=== PATIENT | male | born 1990 | race Hispanic/Latino ===

== ENCOUNTER → 2019-05-01 | Outpatient (CLI) | payer BC ==
--- NOTE | 2019-05-01 17:29 | Diagnostic Imaging Report ---
EXAM: SINUSES (PARANASAL)MIN 3VIEWS DATE: 05/01/2019 9:29 AM INDICATION: Headache, hypertension COMPARISON: None FINDINGS: The paranasal sinuses are clear without evidence for air-fluid level or other abnormality. The remaining visualized osseous structures demonstrate no evidence of acute fracture or dislocation. The mastoid air cells are clear. The surrounding soft tissues are unremarkable. IMPRESSION: Unremarkable radiographic appearance of the paranasal sinuses. Signed by: Dr. Servando Gutierrez MD on 05/01/2019 5:26 PM
== END ==
LOC: RAD 09:19
PROVIDERS: ATTEND Family Medicine
DX: R51 Headache (principal); I10 Essential (primary) hypertension
CPT/HCPCS: 70220